=== PATIENT | female | born 1980 | race Caucasian/White ===

== ENCOUNTER 2025-06-21 18:58 | Emergency (ER) | payer OTHER, SELFPAY ==
[2025-06-21 19:08] VITALS: BP 145/89
--- NOTE | 2025-06-21 19:56 | ED.GENMED ---
History of Present Illness
General
Chief Complaint: Skin Problem
Time Seen by Provider: 06/21/25 19:15
History of Present Illness
History of Present Illness:
44-year-old female presenting for skin rash. Patient arrives with son. They recently moved to the area in April and notes that the condition of the house they moved into was poor. Patient and son both started with a rash in the past 2 to 3
weeks. They went to urgent care this week and were thought to have scabies. They were prescribed a cream which they used, however rash is still present. Patient notes rash to her upper extremities, reports that it is overall improved after
initial treatment. The rash is itchy in quality. Denies any new exposures. Patient did clean all of the linens and sheets, however they fear that the carpet is not clean. No report of any fever. No report of any other additional acute medical
complaints
Phy Exam
Physical Exam
Physical Exam:
General: Well-appearing, no clinical signs of dehydration, nontoxic and in no acute distress
HEENT: protecting airway
Neck: appears supple
CV: Normal heart rate
Resp: No accessory muscle use, no increased work of breathing
Abd: No distention
Extremities: No deformities, no swelling
Neuro: alert, no focal neurologic deficit
: deferred
Rectal: deferred
Psych: Normal affect
Skin: mild raised bumps to b/l upper extremities at bicipital regions with mild excoriations
Course
Vital Signs
Initial and Last Documented VS:
Initial Vital Signs
Temp Pulse Resp BP Pulse Ox
98.2 F 78 18 145/89 99
06/21/25 19:08 06/21/25 19:08 06/21/25 19:08 06/21/25 19:08 06/21/25 19:08
Last Documented Vital Signs
Temp Pulse Resp BP Pulse Ox
98.2 F 78 18 145/89 99
06/21/25 19:08 06/21/25 19:08 06/21/25 19:08 06/21/25 19:08 06/21/25 19:59
MDM/Problems Addressed
MDM/Problems Addressed:
44-year-old female presenting for persistent rash. Vital signs are normal.
On exam patient is resting comfortably, no acute distress. Patient notes rash to the upper extremities, however has overall improved after initial treatment with permethrin cream. Rash does appear consistent with scabies, with son at bedside with
similar rash, although sons is worse in distribution. Patient afebrile, nontoxic, certain for systemic infection. No concern for allergic reaction. Feel patient would benefit from additional application of permethrin. Will prescribe. Also
encouraged that she clean all her linens and her carpet again. Will also prescribe a topical hydrocortisone for itching. Otherwise feel stable for discharge. Return precautions discussed
*Pulse Oximetry
SaO2: 99
Oxygen Mode of Delivery: Room air
Patient hypoxic: no
*Critical Care Note
Total Time (30-74mins, 75-104mins- exclusive of procedures): Not Applicable
ED Attending Note
-
Portions of this chart may have been created with voice recognition software.� Occasional wrong word or��sound alike� substitutions may have occurred due to the inherent limitations of voice recognition software.
Discharge Plan
Departure
Patient Disposition: Home (Routine Discharge)
Date of Disposition: 06/21/25
Time of Disposition: 19:53
Patient with high blood pressure during this ER visit?: No
Condition: Good
Discharge Problem:
Scabies
Instructions: Scabies, Skin Rash (DC)
Prescriptions:
New
permethrin 5 % cream
1 applic topical Q14D Qty: 60 0RF
hydrocortisone 1 % cream
1 applic topical TID PRN (Reason: rash) Qty: 28.35 0RF
Activity Restrictions/Additional Instructions:
You were seen in the emergency department for skin rash
We suspect that you have scabies. You were prescribed permethrin cream. Please massage the cream thoroughly into the skin from the neck to the soles of the feet, including areas under the fingernails and toenails. The cream should be applied
before bedtime, and removed with a shower or bath after 8 to 14 hours.
We recommend that you rewash all of your sheets and bedding, as well as deep clean your carpets.
Please follow-up closely with your primary care physician.
Return to the emergency department for any worsening of your symptoms, or any development of chest pain, difficulty breathing, abdominal pain with persistent vomiting and inability to tolerate food or liquid by mouth (concern for dehydration),
weakness, headache or confusion, fever greater than 100.4, or any additional symptoms that are concerning to you.
Thank you for choosing [facility].
Discharge Date and Time
Print Language: [place]
== END 2025-06-21 20:14 | disposition home or self-care (01) ==
LOC: EMR 18:58
PROVIDERS: EMERGENCY PHYSICIAN Student in an Organized Health Care Education/Training Program
DX: B86 Scabies (principal)
CPT/HCPCS: 99282